=== PATIENT | male | born 1995 | race Caucasian/White ===

== ENCOUNTER 2021-10-29 19:44 | Emergency (ER) | payer SELFPAY ==
[~2021-10-29] VITALS: Ht 168 cm; Wt 85.0 kg
[~2021-10-29 19:44] MED LIST: LITH600C; QUET200T; SULF1TAB38 PO
[2021-10-29 20:03] LABS: HEMATOCRIT 43 % (40-54); HEMOGLOBIN 14.5 g/dL (13.3-17.7); MEAN CORPUSCULAR HEMOGLOBIN 30 pg (25-34); MEAN CORPUSCULAR HGB CONC 34 g/dL (32-36); MEAN CORPUSCULAR VOLUME 87 fL (80-99); MEAN PLATELET VOLUME 10.8 fL (9.0-12.2); PLATELET COUNT 289 10^3/uL (130-400); WHITE BLOOD COUNT 12.6 10^3/uL (4.3-11.0)
[2021-10-29 20:08] LABS: ALBUMIN 4.6 GM/DL (3.2-4.5); POTASSIUM 3.4 MMOL/L (3.6-5.0)
[2021-10-29 20:09] LABS: CALCIUM 9.2 MG/DL (8.5-10.1)
[2021-10-29 20:11] LABS: TOTAL PROTEIN 7.7 GM/DL (6.4-8.2)
[2021-10-29 20:12] LABS: BILIRUBIN,TOTAL 0.8 MG/DL (0.1-1.0)
[2021-10-29 20:14] LABS: CREATININE SERUM 1.06 MG/DL (0.60-1.30)
[2021-10-29] MEDS ORDERED: NS 100 ML (IVPB) BAG IV ONE (20:15)
[2021-10-29] MEDS ORDERED: IOHEXOL 350 MG/ML 100 ML (OMNIPAQUE 350) VIAL IV ONE (20:15)
[2021-10-29] MEDS ORDERED: HOLD METFORMIN - RECEIVED CONTRAST 20 ML VIAL IV SCH (20:15)
[2021-10-29 20:16] LABS: BILIRUBIN,DIRECT 0.3 MG/DL (0.0-0.3); BILIRUBIN,INDIRECT 0.5 MG/DL
--- NOTE | 2021-10-29 20:44 | Diagnostic Imaging Report ---
PROCEDURE: CT head, face and cervical spine without contrast. TECHNIQUE: Multiple contiguous axial images were obtained through the head, neck, and facial bones without the use of intravenous contrast. Sagittal and coronal reformations through the cervical spine and facial bones were also performed. Auto Exposure Controls were utilized during the CT exam to meet ALARA standards for radiation dose reduction. INDICATION: Head injury, trauma. COMPARISON: None available. FINDINGS: Head: No hyperdense hemorrhage or space-occupying mass. No hydrocephalus or midline shift. No evidence of territorial infarct. Basilar cisterns are patent. Right supraorbital scalp swelling and small subcutaneous hematoma. Left scalp swelling and small hematoma. No skull fracture. The paranasal sinuses and mastoid air cells are clear. Face: No acute fracture in the nasal bone, osseous nasal septum or anterior nasal spine. The orbits, zygomatic arches, maxillary sinus cao and pterygoid plates are all intact. Temporomandibular joints are normal alignment. There is no acute mandibular fracture. No globe injury. Cervical spine: No acute fracture or traumatic malalignment. No high-grade spinal canal narrowing. Airway is patent. No cervical lymphadenopathy. Visualized thyroid is normal. Acute fractures of the left upper ribs are more completely detailed in the CT chest report. IMPRESSION: 1. No acute intracranial process or skull fracture. 2. No acute fracture or traumatic malalignment of the cervical spine. 3. No fracture of the midface or mandible. 4. Please see report for CT chest, abdomen or pelvis for details of the left rib fractures. Dictated by: Dictated on workstation # [id number]
--- NOTE | 2021-10-29 20:55 | Diagnostic Imaging Report ---
PROCEDURE: CT chest, abdomen and pelvis with contrast. TECHNIQUE: Multiple contiguous axial images were obtained through the chest, abdomen, and pelvis after the administration of intravenous contrast. Auto Exposure Controls were utilized during the CT exam to meet ALARA standards for radiation dose reduction. INDICATION: Trauma, injury to chest. COMPARISON: None available. FINDINGS: Chest: Normal thyroid. No subclavicular axillary lymphadenopathy. No evidence of mediastinal hemorrhage. No mediastinal or hilar lymphadenopathy. Normal heart size without pericardial effusion. Normal caliber thoracic aorta without evidence of acute traumatic injury. No pleural effusion or pneumothorax. No pulmonary consolidations to indicate laceration or contusion. There are acute mildly displaced fractures of the left 1st, 3rd, 4th and 5th ribs. The left posterior 8th and 9th ribs are also fractured and nondisplaced. No right-sided rib fractures. No scapular fracture on either side. The clavicles are intact. No sternal fracture. No fracture within the thoracic spine. Abdomen and pelvis: No free intraperitoneal air or fluid. The liver and spleen enhance normally without evidence of subcapsular hematoma or laceration. The adrenals and pancreas are normal. The kidneys enhance symmetrically without evidence of traumatic injury. Delayed phase imaging demonstrates opacification of normal caliber ureters and the urinary bladder without evidence of ureteral injury or bladder rupture. No dilated loops of bowel. Normal caliber abdominal aorta without evidence of retroperitoneal hemorrhage. No abdominal or pelvic lymphadenopathy. No acute fracture of the pelvis or proximal femurs. IMPRESSION: 1. Acute minimally displaced fracture of the left 1st, 3rd-5th, 8th and 9th ribs. No pneumothorax or pleural effusion. 2. No other acute injury in the chest, abdomen or pelvis. Dictated by: Dictated on workstation # [id number]
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
[2021-10-29 21:53] VITALS: BP 120/100
== END 2021-10-29 21:55 ==
LOC: EDUNIT# 19:44 → ER 19:47
DX: S22.42XA Multiple fractures of ribs, left side, initial encounter for closed fracture (principal); S01.01XA Laceration without foreign body of scalp, initial encounter; S20.212A Contusion of left front wall of thorax, initial encounter; S30.1XXA Contusion of abdominal wall, initial encounter; F10.129 Alcohol abuse with intoxication, unspecified; Z72.0 Tobacco use; V89.2XXA Person injured in unspecified motor-vehicle accident, traffic, initial encounter
CPT/HCPCS: 12002; 70450; 70486; 71260; 72125; 74177; 80048; 80076; 85027; 93041; G0480; 36415; 80320